=== PATIENT | male | born 1955 | race Two or more races ===

== ENCOUNTER 2021-08-29 07:26 | Inpatient (IN) | payer OTHER, MEDICAID ==
[~2021-08-29] VITALS: Ht 167.6 cm; Wt 49.0 kg
[2021-08-29 08:24] LABS: Basophils # (auto) 0.1 10 ^3/uL (0-0.2); Eosinophils # (auto) 0.1 10 ^3/uL (0-0.8); Eosinophils % (auto) 1.6 % (0.0-7.0); Hematocrit 26.4 % (41.0-53.0); Hemoglobin 9.3 g/dL (13.5-17.5); Lymphocytes # (auto) 2.3 10 ^3/uL (0.4-5.4); Lymphocytes % (auto) 26.2 % (10.0-50.0); Mean Corpuscular Hemoglobin 29.9 pg (28.0-32.0); Mean Corpuscular Hgb Conc. 35.1 g/dL (32.0-36.0); Mean Corpuscular Volume 85.1 fL (80.0-100.0); Monocytes # (auto) 0.6 10 ^3/uL (0-1.3); Monocytes % (auto) 7.5 % (0.0-12.0); Neutrophils # (auto) 5.5 10 ^3/uL (1.6-8.6); Neutrophils % (auto) 63.7 % (37.0-80.0); Nucleated Red Blood Cells % 0.7 %; White Blood Cell 8.6 10^3/uL (4.4-10.8)
[2021-08-29 08:38] LABS: Albumin 2.7 g/dL (3.4-5.0); Calcium 8.6 mg/dL (8.5-10.1); Magnesium 2.1 mg/dL (1.6-2.6)
[2021-08-29 08:41] LABS: Bilirubin, Total 0.5 mg/dL (0.2-1.0); Phosphorus 2.7 mg/dL (2.5-4.90); Total Protein 6.8 g/dL (6.4-8.2)
[2021-08-29] MEDS ORDERED: POTASSIUM EFFERVESENT TAB 25 MEQ PO ONE (09:15)
[2021-08-29 09:21] LABS: BUN/Creatinine Ratio 18.4
[2021-08-29] MEDS ORDERED: SOD CHL 0.9%/ KCL 20MEQ 1,000 ML IV ONE (10:15)
[2021-08-29 10:23] LABS: Urine WBC None Seen /hpf (0 - 3)
[2021-08-29 11:00] LABS: Urine Bacteria NONE SEEN /hpf (None Seen); Urine Blood Negative /uL (Negative)
[2021-08-29] MEDS: SODIUM CHLORIDE 0.9% 1,000 ML IV SCH (12:49)
[2021-08-29 13:44] VITALS: BP 163/71
[2021-08-29] MEDS: MORPHINE SULFATE INJECTION 2 MG/ML SYRG IV PRN ×2 (14:06→20:39)
[2021-08-29 16:30] VITALS: BP 158/74
[2021-08-29] MEDS: HYDROcodone-ACET 5/325MG TAB PO PRN (17:24)
[2021-08-30] MEDS: SODIUM CHLORIDE 0.9% 1,000 ML IV SCH ×2 (04:25→21:05)
[2021-08-30] MEDS: MORPHINE SULFATE INJECTION 2 MG/ML SYRG IV PRN (04:47)
[2021-08-30 05:00] VITALS: BP 134/74
[2021-08-30 06:20] LABS: Albumin 2.2 g/dL (3.4-5.0); Calcium 7.8 mg/dL (8.5-10.1)
[2021-08-30 06:23] LABS: Bilirubin, Total 0.4 mg/dL (0.2-1.0); Total Protein 5.6 g/dL (6.4-8.2)
[2021-08-30 06:34] LABS: Hematocrit 22.4 % (41.0-53.0); Hemoglobin 7.9 g/dL (13.5-17.5); Mean Corpuscular Hemoglobin 30.7 pg (28.0-32.0); Mean Corpuscular Hgb Conc. 35.3 g/dL (32.0-36.0); Mean Corpuscular Volume 86.9 fL (80.0-100.0); Red Blood Cells 2.58 10^6/uL (4.5-5.90); Red Cell Distribution Width 16.2 % (11.8-14.3); White Blood Cell 6.8 10^3/uL (4.4-10.8)
[2021-08-30 06:37] LABS: Basophils % (manual) 0 (0.0-2.0); Blast Cells 0; Metamyelocytes % 0; Myelocytes % 0; Promyelocytes % 0; Reactive Lymphocytes 0
[2021-08-30 08:02] LABS: Band Neutrophils % (manual) 7; Eosinophils % (manual) 2 (0-7); Lymphocytes % (manual) 26 (10.0-50.0); Monocytes % (manual) 3 (0-12)
[2021-08-30 08:55] VITALS: BP 164/71
[2021-08-30] MEDS: ENOXAPARIN SOD 40 MG/0.4 ML SYRINGE SC SCH (09:42)
[2021-08-30] MEDS: HYDROcodone-ACET 5/325MG TAB PO PRN ×2 (09:43→23:57)
[2021-08-30] MEDS ORDERED: ASPirin 81 mg TAB PO ONE (11:30)
[2021-08-30] MEDS ORDERED: LORazepam 2MG/ML-1ML VIAL IV ONE (11:45)
[2021-08-30 12:18] LABS: % Iron Saturation 36.6 % (20-55)
[2021-08-30 13:00] VITALS: BP 125/55
[2021-08-30 16:42] VITALS: BP 141/67
[2021-08-30 22:00] VITALS: BP 141/69
[2021-08-31 05:02] VITALS: BP 153/75
[2021-08-31] MEDS: HYDROcodone-ACET 5/325MG TAB PO PRN (05:57)
[2021-08-31] MEDS: SODIUM CHLORIDE 0.9% 1,000 ML IV SCH (06:02)
[2021-08-31 06:34] LABS: Basophils # (auto) 0 10 ^3/uL (0-0.2); Eosinophils # (auto) 0.1 10 ^3/uL (0-0.8); Hemoglobin 7.7 g/dL (13.5-17.5); Lymphocytes # (auto) 1.6 10 ^3/uL (0.4-5.4); Neutrophils # (auto) 4.2 10 ^3/uL (1.6-8.6)
[2021-08-31 06:37] LABS: Basophils % (auto) 0.3 % (0.0-2.0); Eosinophils % (auto) 1.9 % (0.0-7.0); Hematocrit 22.1 % (41.0-53.0); Lymphocytes % (auto) 24.7 % (10.0-50.0); Mean Corpuscular Hemoglobin 29.9 pg (28.0-32.0); Mean Corpuscular Hgb Conc. 34.7 g/dL (32.0-36.0); Monocytes # (auto) 0.5 10 ^3/uL (0-1.3); Monocytes % (auto) 8.5 % (0.0-12.0); Neutrophils % (auto) 64.6 % (37.0-80.0); Nucleated Red Blood Cells % 1.3 %; Red Blood Cells 2.56 10^6/uL (4.5-5.90); White Blood Cell 6.4 10^3/uL (4.4-10.8)
[2021-08-31 06:42] LABS: Albumin 2.1 g/dL (3.4-5.0); Potassium 3.8 mmol/L (3.5-5.1)
[2021-08-31 06:51] LABS: BUN/Creatinine Ratio 16.7; Bilirubin, Total 0.6 mg/dL (0.2-1.0); Calcium 7.9 mg/dL (8.5-10.1); Total Protein 5.5 g/dL (6.4-8.2)
[2021-08-31 09:00] VITALS: BP 142/67
[2021-08-31] MEDS: ENOXAPARIN SOD 40 MG/0.4 ML SYRINGE SC SCH (09:40)
[2021-08-31] MEDS: ASPirin 81 mg TAB PO SCH (09:40)
[2021-08-31] MEDS: MORPHINE SULFATE INJECTION 2 MG/ML SYRG IV PRN ×2 (09:41→18:46)
[2021-08-31] MEDS ORDERED: LORazepam 2MG/ML-1ML VIAL IV PRN (11:30)
[2021-08-31 11:45] LABS: % Iron Saturation 49.2 % (20-55)
[2021-08-31] MEDS ORDERED: GADOTERATE MEG 7.5 MMOL/15ml INJ (0.5MMOL/ml) IV ONE (12:29)
[2021-08-31] MEDS ORDERED: SODIUM FERR GLUC 62.5MG/5ML 125 MG in SODIUM CHL 0.9% 100 ML IV ONE (12:30)
[2021-08-31 13:00] VITALS: BP 158/62
[2021-08-31 17:00] VITALS: BP 158/81
[2021-08-31 21:30] VITALS: BP 157/77
[2021-09-01] MEDS: MORPHINE SULFATE INJECTION 2 MG/ML SYRG IV PRN ×2 (01:37→08:14)
[2021-09-01 05:00] VITALS: BP 135/63
[2021-09-01 06:02] LABS: Hemoglobin 7.5 g/dL (13.5-17.5)
[2021-09-01 06:05] LABS: Hematocrit 21.5 % (41.0-53.0); Mean Corpuscular Hemoglobin 29.8 pg (28.0-32.0); Mean Corpuscular Hgb Conc. 34.7 g/dL (32.0-36.0); Mean Corpuscular Volume 85.9 fL (80.0-100.0); Red Cell Distribution Width 16.4 % (11.8-14.3); White Blood Cell 7.4 10^3/uL (4.4-10.8)
[2021-09-01 06:11] LABS: Basophils % (manual) 0 (0.0-2.0); Blast Cells 0; Promyelocytes % 0; Reactive Lymphocytes 0
[2021-09-01 06:15] LABS: BUN/Creatinine Ratio 10.3; Calcium 7.5 mg/dL (8.5-10.1); Potassium 3.4 mmol/L (3.5-5.1)
[2021-09-01 09:14] VITALS: BP 161/72
[2021-09-01] MEDS: ASPirin 81 mg TAB PO SCH (10:37)
[2021-09-01] MEDS ORDERED: SODIUM FERR GLUC 62.5MG/5ML 125 MG in SODIUM CHL 0.9% 100 ML IV SCH (12:00)
[2021-09-01] MEDS ORDERED: ASPI1CHW15 PO (12:58)
[2021-09-01 13:00] VITALS: BP 141/68
[2021-09-01 13:15] LABS: Band Neutrophils % (manual) 4; Eosinophils % (manual) 1 (0-7); Lymphocytes % (manual) 25 (10.0-50.0); Metamyelocytes % 1; Monocytes % (manual) 7 (0-12); Myelocytes % 1
[2021-09-01] MEDS: HYDROcodone-ACET 5/325MG TAB PO PRN (14:59)
== END 2021-09-01 15:18 | disposition home or self-care (01) | DRG 65 ==
LOC: ER 07:26 → OVERFLOW 11:43 → EAST 13:27
PROVIDERS: ADMIT Internal Medicine; ATTEND Internal Medicine
DX: I63.9 Cerebral infarction, unspecified (principal); E87.1 Hypo-osmolality and hyponatremia; E87.6 Hypokalemia; E86.0 Dehydration; C61 Malignant neoplasm of prostate; D64.9 Anemia, unspecified; Z20.822 Contact with and (suspected) exposure to COVID-19; F17.210 Nicotine dependence, cigarettes, uncomplicated; I10 Essential (primary) hypertension
CPT/HCPCS: 36415; 70450; 70551; 70553; 71045; 80048; 80053; 80061; 81001; 82607; 82746; 83540; 83550; 83615; 83735; 84100; 84550; 85007; 85025; 85027; 93005; 93886; 96365; 96366; G0378